=== PATIENT | male | born 1935 | race Caucasian/White ===

== ENCOUNTER 2018-04-07 10:40 | Emergency (ER) | payer MEDICARE ==
[2018-04-07] MEDS ORDERED: Acyclovir 400 MG Tab PO ONE (10:51)
[2018-04-07] MEDS ORDERED: predniSONE 20 MG Tab PO ONE (10:53)
--- NOTE | 2018-04-07 10:56 | EDM.PDOC ---
ED HPI GENERAL MEDICAL PROBLEM - General Stated Complaint: LOSS OF USE OF RIGHT SIDE OF FACE Time Seen by Provider: 04/07/18 10:40 Source of Information: Reports: Patient, Family () History Limitations: Reports: No Limitations - History of Present Illness INITIAL COMMENTS - FREE TEXT/NARRATIVE: 82 y.o.w. male with a H/O HTN, came to the ed with a right facial droop for 1-2 days. pt is able to open and close his eyes and is able to wrinkle his forehead , no other focal weaknesses. No N/V/D, no trauma, no other acute medical issues. BP 165/87 RR 16 Pulse ox 98% temp 37.0 pulse 87 Onset Date: 04/05/18 Onset Time: 07:00 Duration: Day(s): Location: Reports: Face (right face) Quality: Reports: Dull Severity: Mild Improves with: Reports: None Worsens with: Reports: None Context: Reports: Other Associated Symptoms: Reports: No Other Symptoms - Related Data Allergies Allergy/AdvReac Type Severity Reaction Status Date / Time No Known Allergies Allergy Verified 06/11/14 18:19 Home Meds: Home Meds Diltiazem HCl [Diltiazem 24Hr ER] 06/11/14 [History] Lisinopril 06/11/14 [History] Temazepam [Restoril] 06/11/14 [History] Acyclovir 400 mg PO 5XDAY #50 tablet 04/07/18 [Rx] ED ROS GENERAL - Review of Systems Review Of Systems: See Below Constitutional: Reports: No Symptoms HEENT: Reports: Other (right facial droop) Respiratory: Reports: No Symptoms Cardiovascular: Reports: No Symptoms Endocrine: Reports: No Symptoms GI/Abdominal: Reports: No Symptoms : Reports: No Symptoms Musculoskeletal: Reports: No Symptoms Skin: Reports: No Symptoms Neurological: Reports: No Symptoms Psychiatric: Reports: No Symptoms Hematologic/Lymphatic: Reports: No Symptoms Immunologic: Reports: No Symptoms ED EXAM, NEURO - Physical Exam Exam: See Below Exam Limited By: No Limitations General Appearance: Alert, WD/WN, Mild Distress Eye Exam: Bilateral Eye: Normal Inspection (pt is able to close eyes.) Ears: Normal External Exam Nose: Normal Inspection Throat/Mouth: Normal Lips, Normal Voice, No Airway Compromise, Other (poor dentition) Head Exam: Atraumatic, Normocephalic Neck: Normal Inspection, Supple, Non-Tender Respiratory/Chest: No Respiratory Distress, Lungs Clear, Normal Breath Sounds, No Accessory Muscle Use, Chest Non-Tender Cardiovascular: Normal Peripheral Pulses, Regular Rate, Rhythm, No Edema, No Gallop, No Murmur, No Rub GI/Abdominal: Normal Bowel Sounds, Soft, Non-Tender, No Organomegaly, No Abnormal Bruit, No Mass, Pelvis Stable (Male) Exam: Deferred Rectal (Males) Exam: Deferred Neurological: Alert, Normal Mood/Affect, Normal Dorsiflexion, Normal Plantar Flexion, Normal Gait, Oriented x 3, Other (amezquita's palsy right face, peripheral) DTR: 2+: Bicep (L) Back Exam: Normal Inspection, Full Range of Motion Extremities: Normal Inspection, Normal Range of Motion, Non-Tender, No Pedal Edema Psychiatric: Normal Affect, Normal Mood Skin Exam: Warm, Dry, Intact, Normal Color, No Rash Course - Vital Signs Text/Narrative:: 82 y.o.w. male with a H/O HTN, came to the ed with a right facial droop for 1-2 days. pt is able to open and close his eyes and is able to wrinkle his forehead , no other focal weaknesses. No N/V/D, no trauma, no other acute medical issues. BP 165/87 RR 16 Pulse ox 98% temp 37.0 pulse 87 PE: WNWD W M with right facial droop and borderline HTN, Pt did not take his BP meds today. Imaging: CT head: NAD Labs: CBC, BMP and INR were nl Glc was 193 nonfasting, however Impression: Amezquita's palsy right face, peripheral, H/O HNT Tx: Acyclovir, Prednisone Reexam: Improved, BP was 1 weeks ago 135/87 on his current BP meds. Plan: D/C with instructions Last Recorded V/S: Last Vital Signs Temp 37.0 C 04/07/18 11:00 Pulse 84 04/07/18 11:00 Resp 16 04/07/18 11:00 BP 165/87 H 04/07/18 11:00 Pulse Ox 98 04/07/18 11:00 - Orders/Labs/Meds Orders: Active Orders 24 hr Category Date Time Status Head wo Cont [CT] Stat Exams 04/07/18 10:51 Taken Labs: Laboratory Tests 04/07/18 04/07/18 04/07/18 Range/Units 11:05 11:05 11:05 WBC 5.9 (4.5-12.0) X10-3/uL RBC 5.26 (4.30-5.75) x10(6)uL Hgb 15.8 H (11.5-15.5) g/dL Hct 48.4 (30.0-51.3) % MCV 92.1 (80-96) fL MCH 30.1 (27.7-33.6) pg MCHC 32.7 (32.2-35.4) g/dL RDW 12.9 (11.5-15.5) % Plt Count 251 (125-369) X10(3)uL MPV 7.6 (7.4-10.4) fL Neut % (Auto) 58.8 (46-82) % Lymph % (Auto) 30.9 (13-37) % [place] % (Auto) 7.9 (4-12) % Eos % (Auto) 2 (1.0-5.0) % Baso % (Auto) 1 (0-2) % Neut # (Auto) 3.5 (1.6-8.3) # Lymph # (Auto) 1.8 (0.6-5.0) # [place] # (Auto) 0.5 (0.0-1.3) # Eos # (Auto) 0.1 (0.0-0.8) # Baso # (Auto) 0.0 (0.0-0.2) # PT 10.5 (8.7-11.1) INR 1.08 (0.89-1.13) Sodium 139 (135-145) mmol/L Potassium 5.1 (3.5-5.3) mmol/L Chloride 103 (100-110) mmol/L Carbon Dioxide 30 (21-32) mmol/L BUN 12 (7-18) mg/dL Creatinine 1.0 (0.70-1.30) mg/dL Est Cr Clr Drug Dosing TNP Estimated GFR (MDRD) > 60 (>60) BUN/Creatinine Ratio 12.0 (9-20) Glucose 193 H (80-116) mg/dL Calcium 9.2 (8.6-10.2) mg/dL Meds: Medications Discontinued Medications Generic Name Dose Route Start Last Admin Trade Name Be PRN Reason Stop Dose Admin Acyclovir 400 mg 04/07/18 10:51 04/07/18 11:58 Zovirax PO 04/07/18 10:52 400 mg ONETIME ONE Administration Prednisone 60 mg 04/07/18 10:53 04/07/18 11:30 Prednisone PO 04/07/18 10:54 60 mg ONETIME ONE Administration Departure - Departure Time of Disposition: 12:04 Disposition: Home, Self-Care 01 Condition: Good Clinical Impression: Amezquita's palsy - Discharge Information Prescriptions: Acyclovir 400 mg PO 5XDAY #50 tablet Instructions: Amezquita Palsy, Adult Referrals: Branden Puente MD [Primary Care Provider] - Forms: ED Department Discharge Additional Instructions: Please take Prednison ans Acyclovir as recommended, Please f/u with your PMD. Come back if your symptoms get worse acutely. - My Orders Last 24 Hours: My Active Orders 04/07/18 10:51 Head wo Cont [CT] Stat - Assessment/Plan Last 24 Hours: My Active Orders 04/07/18 10:51 Head wo Cont [CT] Stat
[2018-04-07 11:14] VITALS: BP 165/87
== END 2018-04-07 12:20 | disposition home or self-care (01) ==
LOC: FB.ED 10:40
DX: G51.0 Bell's palsy (principal)
CPT/HCPCS: 36415; 70450; 80048; 85025; 85610; 99284; A9270-GY